=== PATIENT | male | born 1970 | race African-American/Black ===

== ENCOUNTER 2017-01-28 10:43 | Emergency (ER) | payer OTHER | END 2017-01-28 12:13 | disposition home or self-care (01) | LOC: ER 10:43 | DX: M54.9 Dorsalgia, unspecified (principal); M25.511 Pain in right shoulder; W19.XXXA Unspecified fall, initial encounter; F17.210 Nicotine dependence, cigarettes, uncomplicated; Z79.1 Long term (current) use of non-steroidal anti-inflammatories (NSAID) | CPT/HCPCS: 72131; 73030; 99283-25 ==

== ENCOUNTER 2017-04-15 13:13 | Emergency (ER) | payer OTHER | END 2017-04-15 15:52 | disposition home or self-care (01) | LOC: ER 13:13 | DX: M54.9 Dorsalgia, unspecified (principal); G89.29 Other chronic pain; R20.0 Anesthesia of skin | CPT/HCPCS: 99282 ==